=== PATIENT | female | born 1995 | race Caucasian/White ===

== ENCOUNTER 2016-06-25 09:30 | Emergency (ER) | payer BC ==
[2016-06-25] MEDS ORDERED: Ondansetron ODT TAB* 4 MG SL PRN (11:11)
[2016-06-25] MEDS ORDERED: Ondansetron ODT TAB* 4 MG ONE (11:17)
--- NOTE | 2016-06-25 11:37 | UC ---
FLU HPI - HPI Summary HPI Summary: 20 female presents with complaints of diarrhea, nausea and vomiting that began early this morning around 2am that woke her up from her sleep. She states she has had approximately 5-6 episodes since, last one around 9am. She has been unable to keep anything down. Admits to some diffuse abdominal discomfort. States she has been doing a water/fruit juice cleanse for the past week and did not know if it was related. Admits to the chills. Denies blood in vomit/stool, nasal congestion, ear pain, sore throat and headache. She does take probiotics but has not tried taking anything else. She has attempted to drink some water just ME[employer] and while in office that she has been able to keep down. Her last meal was a deli turkey sandwich from a convenient store. - History of Current Complaint Chief Complaint: UCGI Stated Complaint: FLU LIKE SYMPTOMS Time Seen by Provider: 06/25/16 11:10 Hx Obtained From: Patient Hx Last Menstrual Period: less than one month ?: No Onset/Duration: Sudden Onset Severity Currently: Moderate Severity Initially: Moderate Pain Intensity: 5 Pain Scale Used: 0-10 Numeric Associated Signs & Symptoms: Positive: Vomiting, Diarrhea - Allergy/Home Medications Allergies/Adverse Reactions: Allergies Allergy/AdvReac Type Severity Reaction Status Date / Time Clarithromycin [From Biaxin] Allergy Unknown Unknown Verified 06/25/16 10:26 Reaction Details PMH/Surg Hx/FS Hx/Imm Hx Respiratory History Of: Reports: Asthma - exercise induced - Surgical History Surgical History: Yes Surgery Procedure, Year, and Place: T&A - Family History Known Family History: Positive: Cardiac Disease - GRANDFATHER [place] AT 30 YO. FATHER ON NITRO IN EARLY 40's Negative: Hypertension, Diabetes - Social History Alcohol Use: None Substance Use Type: None Smoking Status (MU): Never Smoked Tobacco Review of Systems Constitutional: Negative Skin: Negative Eyes: Negative ENT: Negative Respiratory: Negative Cardiovascular: Negative Gastrointestinal: Vomiting, Diarrhea Genitourinary: Negative Motor: Negative Neurovascular: Negative Musculoskeletal: Negative Neurological: Negative Psychological: Negative All Other Systems Reviewed And Are Negative: Yes Physical Exam Triage Information Reviewed: Yes Appearance: No Pain Distress, Well-Nourished, Ill-Appearing Vital Signs: Initial Vital Signs Temp 99 F 06/25/16 10:13 Pulse 95 06/25/16 10:13 Resp 18 06/25/16 10:13 BP 111/80 06/25/16 10:13 Vital Signs Reviewed: Yes Eyes: Positive: Conjunctiva Clear ENT: Positive: Normal ENT inspection, Hearing grossly normal, Pharynx normal Dental: Negative: Cervical Lymphadenopathy Neck: Positive: Supple, Nontender Respiratory: Positive: Chest non-tender, Lungs clear, Normal breath sounds, No respiratory distress, No accessory muscle use Cardiovascular Exam: Normal Cardiovascular: Positive: RRR, No Murmur, Pulses Normal, Brisk Capillary Refill Abdominal Exam: Normal Abdomen Description: Positive: Nontender, No Organomegaly, Soft. Negative: CVA Tenderness (R), CVA Tenderness (L), Distended, Guarding, McBurney's Point Tenderness Bowel Sounds: Positive: Present, Hyperactive Musculoskeletal: Positive: Strength Intact, ROM Intact, No Edema Neurological Exam: Normal Neurological: Positive: Alert Psychological Exam: Normal Re-Evaluation - Re-Evaluation First Eval Re-Evaluation Time: 11:30 Change: Improved - patient was feeling less nauseous Flu Course/Dx - Course Course Of Treatment: patient was given zofran for nausea. denied IVF at this time and agreed to drink water after adminstration of zofran. felt better. was given tylenol for fever/pain. told to continue taking probiotics. appeared to be a viral gastroenteritis or food poisoning. prescribed zofran to take at home. rest, drink plenty of fluids. aware of worsening signs and symptoms. - Differential Dx/Diagnosis Differential Diagnosis/HQI/PQRI: Influenza, Other - viral syndrome, food poisoning, diarrhea, vomiting Provider Diagnoses: gastroenteritis, food poisoning vs viral syndrome Discharge - Discharge Plan Condition: Stable Disposition: HOME Prescriptions: Ondansetron ODT TAB* [Zofran 4 MG Odt TAB*] 4 mg PO Q6H PRN #15 tab.odt PRN Reason: Nausea Patient Education Materials: Acute Nausea and Vomiting (ED), Gastroenteritis ( ED), Food Poisoning (ED) Forms: *School Release Referrals: Non Staff,Doctor [Primary Care Provider] - Additional Instructions: Take prescribed nausea as needed for nausea , you may take one every 4-6 hours. Drink plenty of fluids to avoid becoming dehydrated. Take Advil/Tylenol for pain and fever. Continue taking your probiotic pills as this is important to replenish normal sarah and for a healthy digestive tract. If symptoms worsen or do not improve such as increased fever/chills, profuse diarrhea/vomiting, dehydration, large amount of blood in vomit in stool please seek medical attention promptly. Follow up with primary care doctor is recommended. Once able, start off eating a bland diet such as bananas, applesauce, rice and toast to help with diarrhea.
[2016-06-25] MEDS ORDERED: Acetaminophen TAB* 325 MG PO ONE (11:58)
[2016-06-25 12:06] VITALS: BP 114/69
== END 2016-06-25 12:06 | disposition home or self-care (01) ==
LOC: UCCORT 09:30
DX: R19.7 Diarrhea, unspecified (principal); R11.2 Nausea with vomiting, unspecified; R10.84 Generalized abdominal pain; Z88.1 Allergy status to other antibiotic agents
CPT/HCPCS: 99212; G0463

== ENCOUNTER 2017-08-31 14:04 | Emergency (ER) | payer BC ==
[2017-08-31 14:51] VITALS: BP 117/76
--- NOTE | 2017-08-31 16:03 | UC ---
Complaint Female HPI - HPI Summary HPI Summary: 21 y/o female presents to the urgent care c/o urinary pain, burning and frequency on urination for the past 2 days. Pt states mild pelvic pressure and lower abdominal cramping pain today. Pt has not taking anything to alleviate symptom, but has been drinking fluids. Pain is 8/10. Pt denies fever, flank pain , vaginal discharge, SOB, chest pain, N/V/D, or Hx of STD's LMP:08/19/2017. - History Of Current Complaint Chief Complaint: UCGU Stated Complaint: URINARY Time Seen by Provider: 08/31/17 16:02 Hx Obtained From: Patient Hx Last Menstrual Period: 08/19/17 ?: No Onset/Duration: Gradual Onset, Lasting Days - 2 days, Still Present, Worse Since - today Timing: Intermittent Severity Initially: Mild Severity Currently: Moderate Pain Intensity: 8 Pain Scale Used: 0-10 Numeric Character: Burning Aggravating Factor(s): Urination Alleviating Factor(s): Nothing Associated Signs And Symptoms: Positive: Negative. Negative: Fever, Back Pain, Vaginal Bleeding/Discharge, Vaginal Discharge, Genital Swelling, Genital Blisters - Risk Factors Ectopic Risk Factor: Negative Ovarian Torsion Risk Factor: Negative - Allergies/Home Medications Allergies/Adverse Reactions: Allergies Allergy/AdvReac Type Severity Reaction Status Date / Time clarithromycin Allergy Unknown Verified 08/31/17 14:47 Reaction Details Home Medications: Home Medications Escitalopram Oxalate [Lexapro] 20 mg PO DAILY 08/31/17 [History Confirmed ] PMH/Surg Hx/FS Hx/Imm Hx Previously Healthy: Yes Respiratory History: Asthma Neurological History: Migraine - Surgical History Surgical History: Yes Surgery Procedure, Year, and Place: T&A - Family History Known Family History: Positive: Cardiac Disease - GRANDFATHER [place] AT 30 YO. FATHER ON NITRO IN EARLY 40's, Diabetes Negative: Hypertension - Social History Occupation: Employed Full-time Lives: With Family Alcohol Use: None Substance Use Type: None Smoking Status (MU): Never Smoked Tobacco Review of Systems Constitutional: Negative Skin: Negative Eyes: Negative ENT: Negative Respiratory: Negative Cardiovascular: Negative Gastrointestinal: Other - pelvic pain Genitourinary: Dysuria, Frequency, Urgency Motor: Negative Neurovascular: Negative Musculoskeletal: Negative Neurological: Negative Psychological: Negative Is Patient Immunocompromised?: No All Other Systems Reviewed And Are Negative: Yes Physical Exam - Summary Physical Exam Summary: VITAL SIGNS: Reviewed. GENERAL: Patient is a well developed and nourished female who is sitting comfortable in the examining table. Patient is not in any acute respiratory distress. HEAD AND FACE: No signs of trauma. No ecchymosis, hematomas or skull depressions. No sinus tenderness. EYES: PERRLA, EOMI x 2, No injected conjunctiva, clear watery eyes, no nystagmus. No photophobia. EARS: Hearing grossly intact. Ear canals and tympanic membranes are within normal limits. MOUTH: pharynx with no erythema, no exudates,no palatal petechiae. no B/L tonsillar enlargement Uvula in midline. NECK: Supple, trachea is midline, no lymphadenopathy, no JVD, no carotid bruit, no c-spine tenderness, neck with full ROM. CHEST: Symmetric, no tenderness at palpation LUNGS: Clear to auscultation bilaterally. No wheezing or crackles. CVS: Regular rate and rhythm, S1 and S2 present, no murmurs or gallops appreciated. ABDOMEN: Soft, non-tender. No signs of distention. No rebound no guarding, and no masses palpated. Bowel sounds are normal. BACK:no scoliosis or lesions, non tender to palpation, No B/L CVA tenderness EXTREMITIES: FROM in all major joints, no edema, no cyanosis or clubbing. NEURO: Alert and oriented x 3. No acute neurological deficits. Speech is normal and follows commands. SKIN: Dry and warm Triage Information Reviewed: Yes Vital Signs: Initial Vital Signs Temp 99.0 F 08/31/17 14:41 Pulse 69 08/31/17 14:41 Resp 16 08/31/17 14:41 BP 117/76 08/31/17 14:41 Pulse Ox 100 08/31/17 14:41 Complaint Female Dx - Course Course Of Treatment: 21 y/o female presents to the urgent care c/o urinary pain , burning and frequency on urination for the past 2 days. Pt states mild pelvic pressure and lower abdominal cramping pain today. Pt has not taking anything to alleviate symptom, but has been drinking fluids. Pain is 8/10. Pt denies fever, flank pain, vaginal discharge, SOB, chest pain, N/V/D, or Hx of STD's LMP:08/19/2017.Hx obtained. PE:WNL.UA and test ordered. UA results: Blood 3+, Leukoesterase 3+, glucose : trace. test: negative. Pt Rx Macrobid 100mg PO x 7 days. Pyridium 100mg PO TID x 2 days. Advised to increase fluid intake. Urine sent for culture if any abnormality Pt will be notified for further treatment. Pt advised If symptoms do not improve to return to the urgent care or f/u with PCP. F/u w/ PCP for further blood work due FMHX of DM and trace of glucose in urine. Pt understood and agreed. Left the clinic ambulating. - Differential Dx/Diagnosis Differential Diagnosis/HQI/PQRI: Cervicitis, Renal Colic, Ureteral Stone, Urinary Tract Infection Provider Diagnoses: 1- Urinary tract infection. 2- Dysuria Discharge - Sign-Out/Discharge Documenting (check all that apply): Discharge/Admit/Transfer - D/c home - Discharge Plan Condition: Stable Disposition: HOME Prescriptions: Nitrofurantoin Monohyd/M-Cryst [Macrobid 100 mg Capsule] 100 mg PO BID #14 cap Phenazopyridine TAB* [Pyridium 100 mg TAB*] 100 mg PO TID #6 tab Patient Education Materials: Urinary Tract Infection in Women (ED) Referrals: [facility] [Outside] - 1 Week Additional Instructions: 1- Please take Macrobid 100mg PO x 7 days. Pyridium 100 mg PO TID x 2 days to alleviate urinary symptoms. Increase increase fluid intake. drink cranberry juice. 2-Urine sent for culture if any abnormality, you will be notified for further treatment. 3- Lease f/u w/ your PCP for further management since there ia a trace of glucose in your urine and your have FMHX of DM 4-If symptoms do not improve please return to the urgent care or f/u with PCP for further treatment - Billing Disposition and Condition Condition: STABLE Disposition: Home
== END 2017-08-31 16:25 | disposition home or self-care (01) ==
LOC: UCCORT 14:04
DX: N39.0 Urinary tract infection, site not specified (principal); B96.20 Unspecified Escherichia coli [E. coli] as the cause of diseases classified elsewhere; Z88.1 Allergy status to other antibiotic agents
CPT/HCPCS: 81003; 84702; 87077; 87086; 87186; 99212; G0463

== ENCOUNTER 2017-11-21 14:58 | Emergency (ER) | payer BC ==
[2017-11-21 15:56] VITALS: BP 128/85
--- NOTE | 2017-11-21 16:34 | UC ---
General HPI - HPI Summary HPI Summary: 21yo patient who states she has been extremely anxious for the past 1-2 weeks with several panic attacks. She has history of depression and was taking lexapro from november 2016 until July 2017, when she weaned herself off. She states she did not notice that the medication was helping her and she was taking the maximum dose for 1-2 months. She states that her mother overdosed on methadone last week and her 16 yo sister is currently living with her. 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 All these events have triggered her anxiety. She denies homicidal or suicidal ideation. States she is not a fan of taking medication due to history of substance dependance in mother. - History of Current Complaint Chief Complaint: UCPsych Stated Complaint: ANXIETY Time Seen by Provider: 11/21/17 15:45 Hx Obtained From: Patient Hx Last Menstrual Period: 11/17/17 Onset/Duration: Gradual Onset, Lasting Weeks Onset Severity: Mild Current Severity: Moderate Pain Intensity: 6 - Allergy/Home Medications Allergies/Adverse Reactions: Allergies Allergy/AdvReac Type Severity Reaction Status Date / Time clarithromycin Allergy Unknown Verified 11/21/17 15:45 Reaction Details Home Medications: Home Medications Acetaminophen [Extra Strength Non-Aspirin] 1,000 mg PO Q6H PRN 11/21/17 [ History Confirmed 11/21/17] PMH/Surg Hx/FS Hx/Imm Hx Previously Healthy: Yes - Surgical History Surgical History: Yes Surgery Procedure, Year, and Place: T&A - Family History Known Family History: Positive: Cardiac Disease - GRANDFATHER [place] AT 30 YO. FATHER ON NITRO IN EARLY 40's, Diabetes Negative: Hypertension - Social History Alcohol Use: Rare Substance Use Type: None Smoking Status (MU): Never Smoked Tobacco Review of Systems Psychological: Anxious All Other Systems Reviewed And Are Negative: Yes Physical Exam Triage Information Reviewed: Yes Appearance: Well-Appearing, No Pain Distress, Well-Nourished Vital Signs: Initial Vital Signs Temp 97.5 F 11/21/17 15:47 Pulse 80 11/21/17 15:47 Resp 17 11/21/17 15:47 BP 128/85 11/21/17 15:47 Pulse Ox 100 11/21/17 15:47 Vital Signs Reviewed: Yes Eyes: Positive: Conjunctiva Clear ENT: Positive: Hearing grossly normal Neck: Positive: Supple Respiratory: Positive: Chest non-tender Cardiovascular: Positive: Pulses Normal, Brisk Capillary Refill Abdomen Description: Positive: Nontender Musculoskeletal: Positive: Strength Intact, ROM Intact, No Edema Neurological: Positive: Alert, Muscle Tone Normal Skin Exam: Normal Course/Dx - Course Course Of Treatment: Discussed with patient non pharmacological ways of treating anxiety such as discontinuing caffeine, cardiovascular exercise 4-5 times/week, regulation of sleep and to follow a regular schedule. Given that patient has acute exacerbation of anxiety, buspar at a low dose is prescribed to have short term f/u with PCP. Patient also c/o poor quality of sleep, to start hydroxyzine as needed for insomnia. - Differential Dx - Multi-Symptom Provider Diagnoses: Anxiety Discharge - Sign-Out/Discharge Documenting (check all that apply): Patient Departure All imaging exams completed and their final reports reviewed: No Studies - Discharge Plan Condition: Stable Disposition: HOME Prescriptions: busPIRone TAB* [Buspar TAB*] 5 mg PO BID 10 Days #20 tab hydrOXYzine HCL TAB* [Atarax 10 MG TAB*] 10 mg PO BEDTIME PRN 10 Days #10 tab PRN Reason: Insomnia Patient Education Materials: Generalized Anxiety Disorder (ED), Buspirone (By mouth), Insomnia (ED), Hydroxyzine (By mouth) Referrals: No Primary Care Phys,NOPCP [Primary Care Provider] - [facility] [place] [facility] [Outside] - Billing Disposition and Condition Condition: STABLE Disposition: Home
== END 2017-11-21 16:52 | disposition home or self-care (01) ==
LOC: UCCORT 14:58
DX: F41.9 Anxiety disorder, unspecified (principal); Z88.3 Allergy status to other anti-infective agents
CPT/HCPCS: 99212; G0463

== ENCOUNTER → 2018-08-05 13:58 | Emergency (ER) | payer BC | END | disposition left against medical advice (07) | LOC: UCCORT 13:58 | DX: S39.92XA Unspecified injury of lower back, initial encounter (principal); Z53.21 Procedure and treatment not carried out due to patient leaving prior to being seen by health care provider ==

== ENCOUNTER 2018-10-17 14:26 | Emergency (ER) | payer BC ==
[2018-10-17 14:52] VITALS: BP 123/70
--- NOTE | 2018-10-17 15:28 | ED ---
Abdominal Pain/Female - HPI Summary HPI Summary: 22 yr old female with the complaint of nausea, late six days for period, left upper quadrant pain that is 4/10, and also lower back pain. Onset 4 days ago. She denies vomiting, diarrhea. She denies dysuria, frequency, hesitancy. She denies vaginal discharge. She denies feeling this way before. - History of Current Complaint Chief Complaint: UCGU Stated Complaint: NAUSEA LOWER BACK/ABDOMINAL PAIN Time Seen by Provider: 10/17/18 14:41 Hx Last Menstrual Period: 09/13/18 Pain Intensity: 4 Allergies/Adverse Reactions: Allergies Allergy/AdvReac Type Severity Reaction Status Date / Time clarithromycin [From Biaxin] Allergy Unknown Verified 10/17/18 14:52 Reaction Details Home Medications: Home Medications NK [No Home Medications Reported] 10/17/18 [History Confirmed 10/17/18] PMH/Surg Hx/FS Hx/Imm Hx - Surgical History Surgery Procedure, Year, and Place: t/a Infectious Disease History: No Infectious Disease History: Denies: Traveled Outside the [place] in Last 30 Days - Family History Known Family History: Positive: None - Social History Occupation: Employed Full-time Alcohol Use: None Substance Use Type: Reports: None Smoking Status (MU): Never Smoked Tobacco Review of Systems Constitutional: Negative Positive: Abdominal Pain, Nausea. Negative: Vomiting, Diarrhea All Other Systems Reviewed And Are Negative: Yes Physical Exam Triage Information Reviewed: Yes Vital Signs On Initial Exam: Initial Vitals Temp Pulse Resp BP Pulse Ox 99.4 F 80 18 123/70 100 10/17/18 14:45 10/17/18 14:45 10/17/18 14:45 10/17/18 14:45 10/17/18 14:45 Vital Signs Reviewed: Yes Appearance: Positive: Well-Appearing, No Pain Distress Skin: Positive: Warm, Skin Color Reflects Adequate Perfusion Head/Face: Positive: Normal Head/Face Inspection Eyes: Positive: EOMI, MARCOS ENT: Positive: Normal ENT inspection Neck: Positive: Nontender Respiratory/Lung Sounds: Positive: Clear to Auscultation, Breath Sounds Present Cardiovascular: Positive: RRR. Negative: Murmur Abdomen Description: Positive: Other: - left upper quadrant tenderness.. Negative: Distended Musculoskeletal: Positive: Strength/ROM Intact Neurological: Positive: Sensory/Motor Intact, Alert, Oriented to Person Place, Time, CN Intact II-III, Normal Gait, Speech Normal Psychiatric: Positive: Normal - [place] Coma Scale Best Eye Response: 4 - Spontaneous Best Motor Response: 6 - Obeys Commands Best Verbal Response: 5 - Oriented Coma Scale Total: 15 Diagnostics - Vital Signs Vital Signs Temp Pulse Resp BP Pulse Ox 10/17/18 14:45 99.4 F 80 18 123/70 100 - Laboratory Lab Results: Lab Results 10/17/18 10/17/18 Range/Units 15:06 15:09 POC Urine Color Yellow POC Urine Clarity Clear POC Urine pH 6.5 (5-9) POC Ur Specif [place] 1.025 (1.010-1.030) POC Urine Protein Negative (Negative) POC Ur Glucose (UA) Negative (Negative) POC Urine Ketones Negative (Negative) POC Urine Blood Negative (Negative) POC Urine Nitrite Negative (Negative) POC Urine Bilirubin Negative (Negative) POC Urine Urobilinogen 0.2 (Negative) POC U Leukocyte Esteras Negative (Negative) POC Ur Test Negative (Negative) Lab Statement: Any lab studies that have been ordered have been reviewed, and results considered in the medical decision making process. Abdominal Pain Fem Course/Dx - Course Course Of Treatment: 22 yr old female with the complaint of left upper quad pain , nausea, low back pain. HCG neg, urine dip neg. - Diagnoses Provider Diagnoses: Left upper quadrant pain, Nausea Discharge - Sign-Out/Discharge Documenting (check all that apply): Patient Departure All imaging exams completed and their final reports reviewed: No Studies - Discharge Plan Condition: Good Disposition: HOME-RECOMMEND TO ED Patient Education Materials: Acute Abdominal Pain (ED) Referrals: No Primary Care Phys,NOPCP [Primary Care Provider] - [facility]] - 1 Day Additional Instructions: It is recommended you to the ER for further work up, labs, imaging to rule out problems today. Do not delay. - Billing Disposition and Condition Condition: GOOD Disposition: Home-Recommend to ED
== END 2018-10-17 15:36 | disposition home health service (06) ==
LOC: MERGE 14:26 → UCCORT 14:26
DX: R10.12 Left upper quadrant pain (principal); R11.0 Nausea
CPT/HCPCS: 81003; 84702; 99202; G0463